=== PATIENT | female | born 1970 | race Caucasian/White ===

== ENCOUNTER 2020-09-25 12:04 | Emergency (ER) | payer OTHER, SELFPAY ==
--- NOTE | ~2020-09-25 | XR_ITS ---
EXAMINATION: XR cervical spine 4-5V EXAM DATE: 09/25/2020 12:38 INDICATION: Head injury. Posterolateral pain. TECHNIQUE: Cervical spine frontal, lateral, lateral swimmers, and open-mouth odontoid projections. Submentovertex projection. There are no prior studies for comparison. FINDINGS: There are no acute fractures identified. Moderate disc disease C5-7. There is mild reversa l of the normal cervical lordosis which may be positional or spasm. 2 mm degenerative anterolisthesi s C4 on C5. No jumped facet joints. Evidence of moderate midcervical facet and uncovertebral joint ar thropathy. Prevertebral soft tissue and pre-dens space are within normal limits. The odontoid process is intact. The lateral masses of C1 line up with C2. Lung apices unremarkable. IMPRESSION: 1. Moderate midcervical arthropathy, lower cervical disc disease. 2. No acute cervical fracture suspected. Reviewed, dictated and finalized at location A. FOOD RECEIVING CLERK
[2020-09-25 12:16] VITALS: BP 131/99; PULSE 102; RESP 16; TEMP 37.3; O2SAT 98
--- NOTE | 2020-09-25 12:23 | ED.WOUNDLAC ---
HPI - Wound/Laceration General Chief Complaint: Wound/Laceration Stated Complaint: neck pain and forehead lac Time Seen by Provider: 09/25/20 12:23 Source: patient and RN notes reviewed History of Present Illness HPI narrative: Patient is a 50-year-old female who presents the urgent care with complaints of a laceration to the forehead and neck pain. Patient states that she fell, tripping over a brick outside of a business on Monday. States that her forehead smashed into a brick pole without any attempt to catch herself. States that she did not lose consciousness and the paramedics told her that the laceration would not need sutured. Patient has had a Band-Aid over the laceration since the incident. States that she has had intermittent headaches without loss of consciousness, nausea, vomiting. States that most of the pain is directly to the backside of the neck and it briefly will radiate to the right and left upon movement. Patient states that she has been taking Tylenol and using ice for comfort and pain. No other acute complaints. Patient aware of the plan of care. Some parts of this dictation were generated by voice recognition software and may contain typographical and/or grammatical inaccuracies. Related Data Home Medications Medication Instructions Recorded Confirmed duloxetine [Cymbalta] 30 mg PO DAILY 09/25/20 09/25/20 ergocalciferol (vitamin D2) 1,250 mcg PO WEEKLY 09/25/20 09/25/20 [Vitamin D2] lisdexamfetamine [Vyvanse] 30 mg PO DAILY 09/25/20 09/25/20 Allergies Allergy/AdvReac Type Severity Reaction Status Date / Time No Known Allergies Allergy Verified 09/25/20 12:24 Review of Systems Review of Systems: Narrative: CONSTITUTIONAL: Denies fever, chills, or sweats. EYES: Denies visual changes, redness, or discharge. ENT: Denies rhinorrhea, congestion, sore throat, or otalgia. CARDIOVASCULAR: Denies chest pain, palpitations, or edema. RESPIRATORY: Denies cough or dyspnea. GASTROINTESTINAL: Denies abdominal pain, nausea, vomiting, or diarrhea. GENITOURINARY: Denies dysuria or hematuria. SKIN: Reports of a laceration to the forehead MUSCULOSKELETAL: Reports of neck pain NEUROLOGIC: Denies headache, numbness, or weakness. All other systems reviewed are negative, except as documented in HPI. PMFSH Comments At the time of my signature, I reviewed and agree with the nursing past medical, surgical, social, and family history. There is no relevant family history pertinent to the patient complaint. Exam Narrative: Exam Narrative: GENERAL: This is a well-nourished, well-developed patient, in no apparent distress. HEAD: normocephalic, atraumatic. EYES: PERRL. Sclera clear/white. Vision is grossly intact. EARS: External ears normal NOSE: External nose normal with no obvious nasal discharge, nares without redness, no rhinorrhea. THROAT: Mucous membranes moist NECK: Right and lateral flexion not tested due to pain. Unable to head lift and chin tuck without excruciating pains. Unable to fully test range of motion due to pain. SKIN: 2 cm linear approximated vertical laceration to the midline forehead NEURO: awake, alert, and oriented to person, place and time. There were no obvious focal neurologic abnormalities. EXTREMITIES: No clubbing, cyanosis, or edema. Course Vital Signs Vital signs: Vital Signs Temperature 99.2 F 09/25/20 12:16 Pulse Rate 102 H 09/25/20 12:16 Respiratory Rate 16 09/25/20 12:16 Blood Pressure 131/99 H 09/25/20 12:16 Pulse Oximetry 98 09/25/20 12:16 Temperature 99.2 F 09/25/20 12:16 Pulse Rate 102 H 09/25/20 12:16 Respiratory Rate 16 09/25/20 12:16 Blood Pressure 131/99 H 09/25/20 12:16 Pulse Oximetry 98 09/25/20 12:16 Reviewed?patient is informed that they may have pre-hypertension or hypertension based on a blood pressure reading in the department. I recommend the patient call the primary care provider listed on their discharge instructions or a physicia
== END 2020-09-25 12:50 | disposition home or self-care (01) ==
PROVIDERS: Emergency Provider Nurse Practitioner Family; PCP Internal Medicine Infectious Disease
DX: S16.1XXA Strain of muscle, fascia and tendon at neck level, initial encounter (principal); W18.00XA Striking against unspecified object with subsequent fall, initial encounter; F98.8 Other specified behavioral and emotional disorders with onset usually occurring in childhood and adolescence; F32.9 Major depressive disorder, single episode, unspecified; Z96.651 Presence of right artificial knee joint; Z85.3 Personal history of malignant neoplasm of breast; Z90.13 Acquired absence of bilateral breasts and nipples
CPT/HCPCS: 72050; 99213; G0463

== ENCOUNTER 2021-09-20 19:26 | Emergency (ER) | payer OTHER, SELFPAY ==
--- NOTE | 2021-09-20 19:38 | ED.URI ---
HPI - URI/Sore Throat General Chief Complaint: Upper Respiratory Infection Stated Complaint: Fever/Cough Time Seen by Provider: 09/20/21 19:46 Source: patient and RN notes reviewed Mode of arrival: ambulatory Limitations: no limitations History of Present Illness HPI Narrative: 51-year-old female presents with concern for fever, persistent cough for 5 days. Reports she has been taking [id number] medications with little relief. She denies body aches, chills, sweats, nausea, vomiting, diarrhea. Denies known sick contacts. MD elicited complaint: cough Related Data Home Medications Medication Instructions Recorded Confirmed ergocalciferol (vitamin D2) 1,250 mcg PO WEEKLY 09/25/20 09/20/21 [Vitamin D2] anastrozole 1 mg PO DAILY 09/20/21 09/20/21 Allergies Allergy/AdvReac Type Severity Reaction Status Date / Time No Known Allergies Allergy Verified 09/25/20 12:24 Review of Systems Review of Systems: CONSTITUTIONAL: Denies malaise, chills, sweats. Reports fever. EYES: Denies visual changes, redness, or discharge. ENT: Reports rhinorrhea, occasional sore throat. CARDIOVASCULAR: Denies chest pain, palpitations, or edema. RESPIRATORY: Reports cough. Denies dyspnea. GASTROINTESTINAL: Denies abdominal pain, nausea, vomiting, diarrhea SKIN: Denies rash or itching. MUSCULOSKELETAL: Denies myalgia. NEUROLOGIC: Denies headache. All systems reviewed & are unremarkable except as noted in HPI and below PMFSH Comments At time of signature, agree with nursing past medical, surgical, social and family history. There is no relevant family history pertinent to the presenting complaint Exam Narrative: GENERAL: Well-appearing, well-nourished, and in no acute distress. HEAD: Normocephalic EYES: PERRLA, conjunctivae clear ENT: Nares clear, turbinates edematous and erythematous, clear discharge. Mucous membranes moist. TM pearly pond with dull light reflex bilaterally; no tragal tenderness. Oropharynx erythematous without lesions. Tonsils enlarged and without exudate, no drooling, no hoarseness, no trismus, uvula midline. NECK: Supple. No lymphadenopathy CHEST: Clear to auscultation, breath sounds equal. No wheezing, rhonchi, rales, or stridor. No respiratory distress, speaks in full sentences. HEART: Regular rate and rhythm. No murmur heard. SKIN: Warm, dry, no rash. NEURO: Alert and oriented x3. PSYCH: Normal mood and affect. Course Course Emergency Course: Patient is aware of diagnosis, understands and agrees to treatment plan. Anticipatory guidance given. Patient agrees to follow-up as directed and is aware of reasons to seek care at the emergency department. Portions of this record may have been created with voice recognition software Vital Signs Vital signs: Reviewed. MDM - URI/Sore Throat MDM Narrative Medical decision making narrative: Differential diagnosis considered: Lundberg virus, strep pharyngitis, allergic rhinitis, upper respiratory tract infection, sinusitis, rhinosinusitis, nasopharyngitis. viral pharyngitis, otitis media, otitis externa, pneumonia, bronchitis, viral cough syndrome, viral syndrome, and influenza. Exam findings show no acute concerns or changes; patient is non-toxic appearing and is in no distress. Patient is appropriate for outpatient treatment and follow-up. Critical Care Time Critical Care Time Critical Care Time: No Discharge Plan Discharge Clinical Impression: Bronchitis Patient Disposition: Home, Self-Care Condition: Stable Instructions: Acute Bronchitis (ED) Additional Instructions: Viral illness may last between 7-21 days; antibiotics do not cure viral illness and are NOT recommended at this time. Recommend antihistamine such as Benadryl at night time and Zyrtec or Taty during the day Cough syrup may cause drowsiness; avoid driving or take it at night time. Also, recommend symptomatic treatment includes: rest, fluids, and increase humidity of the air at home.
[2021-09-20 19:43] VITALS: BP 93/80; PULSE 117; RESP 16; TEMP 37.1; O2SAT 98
[2021-09-22 18:47] LABS: SARS-CoV-2 RNA PCR Negative
== END 2021-09-20 19:58 | disposition home or self-care (01) ==
PROVIDERS: Emergency Provider Nurse Practitioner; PCP Internal Medicine Infectious Disease
DX: J40 Bronchitis, not specified as acute or chronic (principal); Z20.822 Contact with and (suspected) exposure to COVID-19; Z96.652 Presence of left artificial knee joint; Z85.3 Personal history of malignant neoplasm of breast; Z90.13 Acquired absence of bilateral breasts and nipples
CPT/HCPCS: 99213; C9803; G0463; U0003; U0005